=== PATIENT | male | born 1960 | race Caucasian/White ===

== ENCOUNTER 2021-05-29 06:03 | Day surgery (SDC) | payer OTHER, SELFPAY ==
[2021-05-22 13:14] VITALS: BMI 27.6
--- NOTE | 2021-05-25 16:41 | MHC.SHP ---
Pre-Procedural Eval Section A Date of Service: 05/25/21 The patient is an INPATIENT: No Changes since office visit: No Cold of Flu in the past 2 weeks, No New Medical Problems, No Changes in Medication and No Patient answered all questions The History & Physical has been completed within 30 days and I have reviewed it.: Yes Section B Chief Complaint: cataract left eye Allergies: Allergies Allergy/AdvReac Type Severity Reaction Status Date / Time bee pollen [bee stings] Allergy Anaphylaxis, Verified 05/17/21 16:21 swelling Plan Diagnosis/Plan: Unchanged I have reviewed the history and physical and performed a pertinent physical examination on my patient. No changes have occurred unless specified.
--- NOTE | 2021-05-26 08:51 | HO.ANESPROP2 ---
Documented by User: Yoly Mckeon NP 05/26/21 08:53 HPI - Anesthesia Eval Consult details Narrative: 60yo M for Left Cataract Extraction IOL Insertion PCP Cleared No previous cataract on record PMFSH Past Medical History Medical History Anxiety Asthma Chronic rhinitis COPD (chronic obstructive pulmonary disease) Depression Hyperlipidemia PUD (peptic ulcer disease) Smoker Vasovagal syncope Surgical History Surgical History History of esophagogastroduodenoscopy (EGD) History of repair of left rotator cuff History of surgery Hx of cervical spinal arthrodesis Hx of colonoscopy Social History Social History Are you a primary healthcare administration internship to a significant other at home: No Do you presently have visiting nurse or other home services: No Patient Tobacco Use Status: Current everyday Tobacco user Tobacco use type: Cigarette Cigarette Packs Per Day: 1 Cigarettes Per Day: 20.0 Years Smoked: 40 Smoked in Last 30 Days: Yes Patient Interested in Nicotine Replacement: No Use of substances other than those prescribed or required for medical reasons: No Have you been hit, kicked, punched, or otherwise hurt by someone within the past year? If so, by whom?: No Are you DNR?: No Advance Directives: No Advance Directives Information Provided: No Advance Directives on File: No Recently lost weight without trying: No Eating poorly because of decreased appetite: No Nutrition Risks: No Nutritional Risk Meds Allergies Allergy/AdvReac Type Severity Reaction Status Date / Time bee pollen [bee stings] Allergy Anaphylaxis, Verified 05/29/21 06:13 swelling Home Medications Medication Instructions Recorded Confirmed Last Taken Type albuterol sulfate 90 mcg/actuation 2 puff INHALATION Q4-6H PRN 05/17/21 05/17/21 Unknown History aerosol inhaler (ProAir HFA) fluticasone propionate 230 2 puff INHALATION BID 05/17/21 05/17/21 05/29/21 05:00 History mcg-salmeterol 21 mcg/actuation HFA inhaler (Advair HFA) omeprazole 40 mg capsule,delayed 1 cap PO DAILY 05/17/21 05/17/21 05/29/21 05:00 History release tiotropium bromide 2.5 2 puff INHALATION DAILY 05/17/21 05/17/21 Unknown History mcg/actuation mist for inhalation (Spiriva Respimat) Exam Exam Date and Time: May 26, 202151 Height,Weight and Vital Signs: Height 5 ft 9 in Weight 84.8 kg Assessment and Plan Assessment Anesthesia Assessment: Chart Reviewed Documented by User: Monica Myers MD 05/29/21 07:58 PMFSH Active Problems Active Problems: Smoker's cough Post nasal drip No problems lying flat Past Medical History Medical History Anxiety Asthma Chronic rhinitis COPD (chronic obstructive pulmonary disease) Depression Hyperlipidemia PUD (peptic ulcer disease) Smoker Vasovagal syncope Family History Family history of problems with anesthesia: No Surgical History Surgical History History of esophagogastroduodenoscopy (EGD) History of repair of left rotator cuff History of surgery Hx of cervical spinal arthrodesis Hx of colonoscopy History of Problems with Anesthesia: No Social History Social History Are you a primary healthcare administration internship to a significant other at home: No Do you presently have visiting nurse or other home services: No Patient Tobacco Use Status: Current everyday Tobacco user Tobacco use type: Cigarette Cigarette Packs Per Day: 1 Cigarettes Per Day: 20.0 Years Smoked: 40 Smoked in Last 30 Days: Yes Patient Interested in Nicotine Replacement: No Use of substances other than those prescribed or required for medical reasons: No Have you been hit, kicked, punched, or otherwise hurt by someone within the past year? If so, by whom?: No Are you DNR?: No Advance Directives: No Advance Directives Information Provided: No Advance Directives on File: No Recently lost weight without trying: No Eating poorly because of decreased appetite: No Nutrition Risks: No Nutritional Risk Meds Allergies Allergy/AdvReac Type Severity Reaction Status Date / Time bee pollen [bee stings] Allergy Anaphylaxis, Verified 05/29/21 06:13 swelling Home Medications Medication Instructions Recorded Confirmed Last Taken Type albuterol sulfate 90 mcg/actuation 2 puff INHALATION Q4-6H PRN 05/17/21 05/17/21 Unknown History aerosol inhaler (ProAir HFA) fluticasone propionate 230 2 puff INHALATION BID 05/17/21 05/17/21 05/29/21 05:00 History mcg-salmeterol 21 mcg/actuation HFA inhaler (Advair HFA) omeprazole 40 mg capsule,delayed 1 cap PO DAILY 05/17/21 05/17/21 05/29/21 05:00 History release tiotropium bromide 2.5 2 puff INHALATION DAILY 05/17/21 05/17/21 Unknown History mcg/actuation mist for inhalation (Spiriva Respimat) Exam Height,Weight and Vital Signs: Height 5 ft 9 in Weight 84.8 kg Vital Signs Temp Pulse Resp BP Pulse Ox 05/29/21 06:13 97.8 F 75 16 134/86 98 Airway Mallampati Class: III TM Dist: >3cm Neck ROM: Full Loose/Missing/Broken Teeth: Yes (Broken bottom Right ) Heart: RRR Lungs: CTAB Assessment and Plan Assessment Anesthesia Assessment: Anesthesia Plan Discussed Final Anesthetic Review Family History of Problems with Anesthesia: No History of Problems with Anesthesia: No NPO: Yes ASA Class: II Final Preanesthetic Review: No Changes in Pt Med Stat, Meds/Allgs Chart Reviewed, Consent Obtained/Reviewed and Anes Risks/Benef Reviewed Patient Risk: Low Procedure Risk: Low Assessment/Block/Sedation in SS: Assess/Block/Sedation-SS Anesthetic Plan Anesthetic Plan: MAC: Disposition: Standard PACU
[2021-05-29 06:13] VITALS: BP 134/86; PULSE 75; RESP 16; TEMP 36.6; O2SAT 98
[2021-05-29] MEDS: Tetracaine HCl/PF 0.5% Oph Sol 4 ML DROPS 1 DROP EYE-LEFT (06:25)
[2021-05-29] MEDS: Lactated Ringers 500 ML 50 ML IV (06:26)
[2021-05-29] MEDS: Tropicamide 1 % Ophth Sol 3 ML BTL 1 DROP EYE-LEFT ×3 (06:27→06:39)
[2021-05-29] MEDS: Phenylephrine HCL 2.5% Oph SoL 2 ML BOTTLE 1 DROP EYE-LEFT ×3 (06:31→06:43)
--- NOTE | 2021-05-29 08:36 | P.PCNO_ITS ---
Ophthalmology Procedure Procedure Date of Service: 05/29/21 Ophthalmology Viscoelastic: Healon Duet Dual Pack Pro Ophthalmology Lenses: TECNIS [id number] Procedure Notes: PREOPERATIVE DIAGNOSIS: Decreased visual acuity left eye secirene phong to cataract POSTOPERATIVE DIAGNOSIS: Same PROCEDURE: Left cataract extraction with intraocular lens insertion SURGEON: Kenton Hammond M.D. ANESTHESIA: Topical/MAC ESTIMATED BLOOD LOSS: None COMPLICATIONS: None After obtaining informed consent, the patient was brought to the operation room suite and placed in the supine position. After adequate sedation per anesthesia, topical drops of Tetracaine were given to the left eye. The eye was then prepped and draped in the usual sterile fashion. The operating room microscope was then positioned over the operative eye and a lid speculum placed. A paracentesis was created. Viscoelastic was then instilled into the anterior chamber. A three plane incision was then created temporally, utilizing a 2.85 mm keratome. Capsulotomy forceps were then utilized to create a circular tear capsulotomy. Hydrodissection and hydrodelineation were carried out until adequate mobilization of the nucleus occurred. Phacoemulsification was then utilized to remove the dense central nucleus followed by removal of the cortical material utilizing the automated aspiration irrigation unit. Viscoat elastic was instilled into the posterior capsular bag followed by placement of a posterior chamber intraocular lens without difficulty. The residual Viscoat elastic was then removed utilizing the automated IA machine. The wound was check and found to be watertight. The patient tolerated the procedure well and the lid speculum was removed. Intracameral injection of Vigamox 0.1 mL followed by a subtenon injection of Kenalog-40 0.2 mL were administered. The patient will be seen in the a.m.
[2021-05-29 08:41] VITALS: BP 136/92; PULSE 67; RESP 18; TEMP 36.5; O2SAT 95
== END 2021-05-29 08:46 | disposition home or self-care (01) ==
PROVIDERS: PCP Internal Medicine; Visit Provider Ophthalmology
PROC: (CPT 66985; principal; 2021-05-29 08:10)
DX: H25.12 Age-related nuclear cataract, left eye (principal); H54.7 Unspecified visual loss; J44.9 Chronic obstructive pulmonary disease, unspecified; K27.9 Peptic ulcer, site unspecified, unspecified as acute or chronic, without hemorrhage or perforation; E78.5 Hyperlipidemia, unspecified; Z79.51 Long term (current) use of inhaled steroids; Z79.899 Other long term (current) drug therapy; F17.210 Nicotine dependence, cigarettes, uncomplicated
CPT/HCPCS: 66984; J2250; J3010; J3300; V2632

== ENCOUNTER 2023-07-22 07:20 | Day surgery (SDC) | payer OTHER, SELFPAY ==
[2023-07-16 09:19] VITALS: BMI 28.1
--- NOTE | 2023-07-19 09:08 | P.CONAN_ITS ---
Documented by User: Yoly Mckeon NP 07/19/23 09:09 HPI - Anesthesia Eval Consult details Narrative: 63yo M for Right Cataract Extraction IOL Insertion PCP cleared Left eye 2020: Fent 50, Midaz 1 PMFSH Past Medical History Medical History CAD (coronary artery disease) Back pain GERD (gastroesophageal reflux disease) Sleep apnea Cough Myocardial infarction Vasovagal syncope PUD (peptic ulcer disease) Hyperlipidemia Anxiety Depression Smoker COPD (chronic obstructive pulmonary disease) Chronic rhinitis Asthma Family History Family history of problems with anesthesia: No Surgical History Surgical History Hx of heart artery stent Hx of cataract surgery History of repair of left rotator cuff Hx of cervical spinal arthrodesis Hx of colonoscopy History of surgery History of esophagogastroduodenoscopy (EGD) History of Problems with Anesthesia: No Social History Social History Are you a primary day care center director to a significant other at home: No Do you presently have visiting nurse or other home services: No Patient Tobacco Use Status: Current everyday Tobacco user Tobacco use type: Cigarette Cigarette Packs Per Day: 1 Cigarettes Per Day: 15 Years Smoked: 40 Use of substances other than those prescribed or required for medical reasons: No Have you been hit, kicked, punched, or otherwise hurt by someone within the past year? If so, by whom?: No Advance Directives: No Advance Directives Information Provided: No Advance Directives on File: No Recently lost weight without trying: No Eating poorly because of decreased appetite: No Nutrition Risks: No Nutritional Risk Poor oral hygiene: Yes (1 lower crown) Meds Allergies Allergy/AdvReac Type Severity Reaction Status Date / Time bee pollen [bee stings] Allergy Anaphylaxis, Verified 05/29/21 06:13 swelling shellfish derived Allergy Swelling Verified 07/16/23 09:34 Home Medications Medication Instructions Recorded Confirmed Last Taken Type albuterol sulfate 90 mcg/actuation 2 puff inhalation Q4-6H PRN 05/17/21 07/16/23 Unknown History aerosol inhaler (ProAir HFA) Wheezing fluticasone propionate 230 2 puff inhalation BID 05/17/21 07/16/23 05/29/21 05:00 History mcg-salmeterol 21 mcg/actuation HFA inhaler (Advair HFA) omeprazole 40 mg capsule,delayed 1 cap PO DAILY 05/17/21 07/16/23 05/29/21 05:00 History release aspirin 81 mg tablet,delayed 81 mg PO DAILY 07/16/23 07/16/23 Unknown History release atenolol 25 mg tablet 12.5 mg PO BID 07/16/23 07/16/23 Unknown History atorvastatin 20 mg tablet 80 mg PO BEDTIME 07/16/23 07/16/23 Unknown History bupropion HCl 150 mg tablet,12 hr 150 mg PO DAILY 07/16/23 07/16/23 Unknown History sustained-release Exam Height,Weight and Vital Signs: Height 5 ft 9 in Weight 86.183 kg Assessment and Plan Assessment Anesthesia Assessment: Chart Reviewed Final Anesthetic Review Family History of Problems with Anesthesia: No History of Problems with Anesthesia: No Documented by User: Herbert Reid MD 07/22/23 07:05 [facility] Past Medical History Medical History CAD (coronary artery disease) Back pain GERD (gastroesophageal reflux disease) Sleep apnea Cough Myocardial infarction Vasovagal syncope PUD (peptic ulcer disease) Hyperlipidemia Anxiety Depression Smoker COPD (chronic obstructive pulmonary disease) Chronic rhinitis Asthma Surgical History Surgical History Hx of heart artery stent Hx of cataract surgery History of repair of left rotator cuff Hx of cervical spinal arthrodesis Hx of colonoscopy History of surgery History of esophagogastroduodenoscopy (EGD) Social History Social History Are you a primary day care center director to a significant other at home: No Do you presently have visiting nurse or other home services: No Patient Tobacco Use Status: Current everyday Tobacco user Tobacco use type: Cigarette Cigarette Packs Per Day: 1 Cigarettes Per Day: 15 Years Smoked: 40 Use of substances other than those prescribed or required for medical reasons: No Have you been hit, kicked, punched, or otherwise hurt by someone within the past year? If so, by whom?: No Advance Directives: No Advance Directives Information Provided: No Advance Directives on File: No Recently lost weight without trying: No Eating poorly because of decreased appetite: No Nutrition Risks: No Nutritional Risk Poor oral hygiene: Yes (1 lower crown) Meds Allergies Allergy/AdvReac Type Severity Reaction Status Date / Time bee pollen [bee stings] Allergy Anaphylaxis, Verified 05/29/21 06:13 swelling shellfish derived Allergy Swelling Verified 07/16/23 09:34 Home Medications Medication Instructions Recorded Confirmed Last Taken Type albuterol sulfate 90 mcg/actuation 2 puff inhalation Q4-6H PRN 05/17/21 07/16/23 Unknown History aerosol inhaler (ProAir HFA) Wheezing fluticasone propionate 230 2 puff inhalation BID 05/17/21 07/16/23 05/29/21 05:00 History mcg-salmeterol 21 mcg/actuation HFA inhaler (Advair HFA) omeprazole 40 mg capsule,delayed 1 cap PO DAILY 05/17/21 07/16/23 05/29/21 05:00 History release aspirin 81 mg tablet,delayed 81 mg PO DAILY 07/16/23 07/16/23 Unknown History release atenolol 25 mg tablet 12.5 mg PO BID 07/16/23 07/16/23 Unknown History atorvastatin 20 mg tablet 80 mg PO BEDTIME 07/16/23 07/16/23 Unknown History bupropion HCl 150 mg tablet,12 hr 150 mg PO DAILY 07/16/23 07/16/23 Unknown History sustained-release Exam Airway Mallampati Class: II TM Dist: >3cm Neck ROM: Full Loose/Missing/Broken Teeth: Yes (Broken right bottom tooth) Heart: [id number] Lungs: cta b/l Assessment and Plan Assessment Anesthesia Assessment: Anesthesia Plan Discussed Final Anesthetic Review NPO: Yes ASA Class: III Final Preanesthetic Review: No Changes in Pt Med Stat, Meds/Allgs Chart Reviewed, Consent Obtained/Reviewed and Anes Risks/Benef Reviewed Patient Risk: Intermediate Procedure Risk: Low Assessment/Block/Sedation in SS: Assess/Block/Sedation-SS Anesthetic Plan Anesthetic Plan: MAC: Disposition: Standard PACU
[2023-07-22] MEDS: Tetracaine HCl/PF 0.5% Oph Sol 4 ML DROPS 1 DROP EYE-RIGHT (07:40)
[2023-07-22] MEDS: Cyclopentolate 1 % Ophth Sol 2 ML DRPBTL 1 DROP EYE-RIGHT ×3 (07:42→07:58)
[2023-07-22] MEDS: Tropicamide 1 % Ophth Sol 3 ML BTL 1 DROP EYE-RIGHT ×3 (07:44→08:00)
[2023-07-22] MEDS: Lactated Ringers 500 ML 50 ML IV (07:46)
[2023-07-22] MEDS: Ketorolac Tromethamine 0.5% Op 5 ML DROPS 1 DROP EYE-RIGHT ×3 (07:46→08:02)
[2023-07-22] MEDS: Phenylephrine HCL 2.5% Oph SoL 2 ML BOTTLE 1 DROP EYE-RIGHT ×3 (07:48→08:04)
[2023-07-22 07:49] VITALS: BP 149/89; PULSE 63; RESP 16; TEMP 36.4; O2SAT 96; BMI 28.1
--- NOTE | 2023-07-22 08:27 | MHC.SHP ---
Pre-Procedural Eval Section A - 24 Hr Update-Section A only Date of Service: 07/22/23 The patient is an INPATIENT: No Changes since office visit: No Cold of Flu in the past 2 weeks, No New Medical Problems, No Changes in Medication and No Patient answered all questions The patient has been examined within 24 hours of the surgical procedure. The History & Physical has been completed within 30 days and I have reviewed it.: Yes Section B - Complete if H&P > 30 days Chief Complaint: Age-related nuclear cataract, right eye Allergies: Allergies Allergy/AdvReac Type Severity Reaction Status Date / Time bee pollen [bee stings] Allergy Anaphylaxis, Verified 07/22/23 07:29 swelling shellfish derived Allergy Swelling Verified 07/22/23 07:29 Plan Diagnosis/Plan: Unchanged I have reviewed the history and physical and performed a pertinent physical examination on my patient. No changes have occurred unless specified. Time Spent With Patient Time: Total time managing care of this patient today ____ minutes.
--- NOTE | 2023-07-22 08:28 | HO.PNOPHT ---
Ophthalmology Procedure Procedure Date of Service: 07/22/23 Ophthalmology Viscoelastic: Vita Smileyt Dual Pack Pro Ophthalmology Lenses: TECMADY [id number] (21) Procedure Notes: PREOPERATIVE DIAGNOSIS: Decreased visual acuity right eye secondary to cataract POSTOPERATIVE DIAGNOSIS: Same PROCEDURE: Right cataract extraction with intraocular lens insertion SURGEON: Kenton Hammond M.D. ANESTHESIA: Topical/MAC ESTIMATED BLOOD LOSS: None COMPLICATIONS: None After obtaining informed consent, the patient was brought to the operating room suite and placed in the supine position. After adequate sedation per anesthesia, topical drops of Tetracaine were given to the right eye. The eye was then prepped and draped in the usual sterile fashion. The operating room microscope was then positioned over the operative eye and a lid speculum placed. A paracentesis was created. Viscoelastic was then instilled into the anterior chamber. A three plane incision was then created temporally, utilizing a 2.85 mm keratome. Capsulotomy forceps were then utilized to create a circular tear capsulotomy. Hydrodissection and hydrodelineation were carried out until adequate mobilization of the nucleus occurred. Phacoemulsification was then utilized to remove the dense central nucleus followed by removal of the cortical material utilizing the automated aspiration irrigation unit. Viscoelastic was instilled into the posterior capsular bag followed by placement of a posterior chamber intraocular lens without difficulty. The residual Viscoelastic was then removed utilizing the automated IA machine. The wound was checked and found to be watertight. The patient tolerated the procedure well and the lid speculum was removed. Intracameral injection of Vigamox 0.1 mL followed by a subtenon injection of Kenalog-40 0.2 mL were administered. The patient will be seen in the a.m.
[2023-07-22 08:52] VITALS: BP 121/79; PULSE 62; RESP 16; TEMP 36.6; O2SAT 95
== END 2023-07-22 08:57 | disposition home or self-care (01) ==
PROVIDERS: PCP Nurse Practitioner Family; Visit Provider Ophthalmology
PROC: (CPT 66985; principal; 2023-07-22 09:10)
DX: H25.11 Age-related nuclear cataract, right eye (principal); H54.7 Unspecified visual loss; E78.5 Hyperlipidemia, unspecified; I25.2 Old myocardial infarction; Z79.02 Long term (current) use of antithrombotics/antiplatelets; Z79.82 Long term (current) use of aspirin; Z79.899 Other long term (current) drug therapy
CPT/HCPCS: 66984; J2250; J3010; J3301; V2632

== ENCOUNTER 2025-03-09 09:22 | Outpatient (AMB) | payer OTHER, SELFPAY ==
--- NOTE | 2025-03-09 05:30 | A.OFFVIS_ITS ---
Vital Signs 03/09/25 09:32 Height 5 ft 9 in Weight 178 lb BMI 26.3 BP 132/68 Blood Pressure Location Lt brachial Position Sitting Pulse 58 Pulse Source Pulse Oximeter Pulse Oximetry (%) 98 Oxygen Delivery Method Room Air Intake Visit Reasons: COPD Buffing Machine Tender Required: No Commercial Floor Covering Installer: Commercial Floor Covering Installer offered & declined Accompanied by: Self / Same As Patient Allergies bee pollen (bee stings) Allergy (Verified 03/09/25 09:37) Anaphylaxis, swelling shellfish derived Allergy (Verified 03/09/25 09:37) Swelling Medication List - Last Reconciled 03/09/25 by Nitza Cody LPN albuterol sulfate 90 mcg/actuation (ProAir HFA) 2 puffs inhalation Q4-6H PRN aspirin 81 mg PO DAILY atenolol 12.5 mg PO BID atorvastatin 80 mg PO BEDTIME bupropion HCl SR 150 mg PO DAILY omeprazole 1 cap PO DAILY HPI HPI COPD: Details: Parul is a pleasant 64 year old male, current 30 pack year smoker, with underlying COPD, Asthma, ASHOK, GERD, CAD s/p [place] [facility] cardiology, Anxiety and Depression. He was referred by PCP for pulmonary evaluation. He was diagnosed with COPD years ago and was previously on Advair for approximately 30 years, but discontinued it 8 to 10 months ago due to adverse effects such as coughing fits triggered by the medication. Since discontinuation, he reports increased chest tightness and dyspnea, which prompted the current visit. The patient also has a history of asthma, confirmed through testing that induced severe coughing fits during the PFT. He describes his cough as starting with a tickle in the throat and has been persistent for a long time with associated dyspnea and chest tightness. He experienced cough syncope in the past, which was a significant concern as it occurred while driving, but the intensity of these episodes has decreased over time. The patient has a history of sleep apnea diagnosed post-myocardial infarction, with a sleep study showing mild ASHOK AHI 14 with no significant nocturnal hypoxemia in 2021. He currently uses a CPAP machine but reports inconsistent usage over the past two months, leading to symptoms of fatigue and nonrestorative sleep. Since his last sleep study he has lost approximately 40 lbs. He has a history of gastroesophageal reflux disease (GERD), managed with omeprazole, and reports a history of a duodenal ulcer which has resolved. He also reports postnasal drip and seasonal allergies, which have developed over the last decade, but he is not currently on any allergy medications. He denies any recent allergy testing. The patient has a significant smoking history, currently smoking about a pack a day, and has attempted smoking cessation with various methods including patches and Chantix, but faced insurance coverage issues. He has a family history of lung cancer, mother, smoker and has undergone lung screening through [facility], recent LDCT 02/15 revealed new LLL 4.5 mm nodule with recommendation for a six- month follow-up scan however patient states he was informed of an annual follow up. [facility] Medical History (Updated 03/09/25 @ 12:28 by Rachana Bagley NP) CAD (coronary artery disease) Back pain GERD (gastroesophageal reflux disease) Sleep apnea Cough Myocardial infarction Vasovagal syncope PUD (peptic ulcer disease) Hyperlipidemia Anxiety Depression Smoker COPD (chronic obstructive pulmonary disease) Chronic rhinitis Asthma Surgical History Hx of heart artery stent Hx of cataract surgery History of repair of left rotator cuff Hx of cervical spinal arthrodesis Hx of colonoscopy History of surgery History of esophagogastroduodenoscopy (EGD) Social History (Updated 03/09/25 @ 09:37 by Nitza Cody LPN) Are you a primary child care cook to a significant other at home: No Do you presently have visiting nurse or other home services: No Patient Tobacco Use Status: Current everyday Tobacco user Tobacco use type: Cigarette Cigarette Packs Per Day: 1 Cigarettes Per Day: 20 Years Smoked: 40 Review of Systems Const Denies chills, Denies excessive sweating, Denies fever(s), Denies headache(s) and Denies night sweats Eyes Denies dry eyes, Denies irritation and Denies itchy eyes ENT Reports Normal hearing present, Denies headache(s) and Denies sore throat Card Denies chest pain, Denies chest pain at rest, Denies chest pain with activity, Denies claudication, Denies leg edema, Denies orthopnea and Denies paroxysmal nocturnal dyspnea Resp Denies chest congestion, Denies excessive phlegm production, Denies pain on inspiration, Denies pain with cough, Denies stridor and Denies wheezing Musc Denies myalgias Neuro Reports Normal hearing present and Denies headache(s) Endo Denies excessive sweating Wayne/Lymph Denies lymphadenopathy Aller/Immun Denies itchy eyes, Denies seasonal rhinorrhea and Denies wheezing Physical Exam Vital Signs: Last Vital Signs Pulse 58 03/09/25 09:32 BP 132/68 03/09/25 09:32 Pulse Ox 98 03/09/25 09:32 Oxygen Delivery Method Room Air 03/09/25 09:32 BMI result Body Mass Index 26.3 Const General: cooperative, healthy appearing, comfortable, no acute distress, well developed and alert Orientation/consciousness: patient oriented x3 Limitations: no limitations HEENT Head: Yes normal to inspection, Yes normocephalic and Yes atraumatic Ears: hearing grossly normal bilaterally and external ears normal Eyes General: appearance normal, both eyes and all related structures Eyelids: Yes eyelids normal Sclerae: sclerae normal EOM: EOMs intact bilaterally Neck Neck: Yes normal visual inspection and Yes no lymphadenopathy Lymphatic: no lymphadenopathy noted Chest Chest palpation & inspection: normal inspection of the chest Resp Effort & Inspection: normal respiratory effort, able to speak in complete sentences, no audible wheezes, no cough, no stridor, not tachypneic, no tripod positioning and no use of accessory muscles Auscultation: clear to auscultation bilaterally Cardio Jugular venous distension: no JVD Rate: regular rate Rhythm: regular rhythm Skin Other: warm, dry General skin exam: no rashes or lesions noted Neuro General: patient oriented x3 Cranial nerves: Yes Normal hearing present Cognition (Neuro): normal cognition Gait exam (Neuro): Normal gait present Extrem General: Yes normal to inspection, Yes capillary refill normal, Yes no clubbing, cyanosis or edema and Yes no pedal edema Psych Appearance: grossly normal and well kempt Speech and movement: Normal speech and movement present and Clear speech present Affect: normal affect Attitude: cooperative Thought process: Normal thought process present Thought content: Normal thought content present Insight: Good insight present (Psych) Judgement: Good judgement present (Psych) Results Reviewed Results Reviewed: RESULT: CT Chest LDCT Lung Program CT Chest LDCT Lung Program Reason: Other:; LDCT LUNG CANCER SCREENING PROGRAM. CURRENT, 47 PACK YEAR HX; Clinical Question(s): Other:; Special Instructions: BOOK AT [facility] BOOK AFTER [address] IN THE 12 LAST MONTHS. NO LUNG CA, SIGNS OR SYMPTOMS. Visit type: Annual Screening TECHNIQUE: Low-dose helical CT of the chest without IV contrast (Adult Lung Cancer Screening) protocol was performed. Coronal reformats were obtained. Weight-based protocol using automatic tube modulation was used to optimize exposure parameters. CTDIvol Body: 2.91 mGy, DLP Body: 113 mGy*cm. COMPARISON: 01/27/2024 FINDINGS: LUNG NODULES (measured on thin axial series 4): New 4.7 x 3.5 mm solid left lower lobe nodule (series 4 image 200). A few additional scattered nodules measuring up to 5 mm are unchanged. OTHER FINDINGS: Cargo Inspector view findings, lines and tubes: None. Trachea and airways: Patent without evidence of tracheal or endobronchial lesion. Lungs and pleura: Mild linear scarring or atelectasis in the lingula. No effusion or pneumothorax. Mediastinum and kelly: No mass or hematoma. No mediastinal or hilar lymphadenopathy. No esophageal abnormality. Heart: Heart is normal in size. No pericardial effusion. Moderate coronary artery calcification. Aorta: Mild vascular calcification but no aneurysm. Pulmonary arteries: Normal caliber. Chest wall soft tissues: No acute abnormality. Diaphragm: Intact. Upper abdomen: Simple cyst in the left hepatic lobe. Bones: No acute abnormality. IMPRESSION: 1. New 4.1 mm average diameter solid left lower lobe nodule. LungRad Category: 3 Probably benign. Probably benign finding(s) - short term follow up suggested; includes nodules with a low likelihood of becoming a clinically active cancer. 6 month LDCT. 2. No significant additional findings requiring further evaluation. Lung-RAD Category Modifier: None. Categorization based on Lung-RADS 2022 criteria. [email or web address] WSN: [id number] Ordering Physician: Beth Aguilar Reason For Exam LDCT LUNG CANCER SCREENING PROGRAM. CURRENT, 47 PACK YEAR HX;Other: Signature Line Dictated By: Gabriel Espana MD Dictated Date/Time: 01/29/25 3:13 pm Reviewed By: Gabriel Espana MD Signed By: Gabriel Espana MD Signed Date/Time: 01/29/25 3:13 pm Transcribed By: JERED Assessment & Plan Assessment & Plan (1) Asthma: Code(s): J45.909 - Unspecified asthma, uncomplicated Category: Medical (2) COPD (chronic obstructive pulmonary disease): Code(s): J44.9 - Chronic obstructive pulmonary disease, unspecified Category: Medical (3) Nicotine dependence, cigarettes, uncomplicated: Code(s): F17.210 - Nicotine dependence, cigarettes, uncomplicated Category: Medical (4) Environmental allergies: Code(s): Z91.09 - Other allergy status, other than to drugs and biological substances Category: Medical (5) Non-restorative sleep: Code(s): G47.8 - Other sleep disorders Category: Medical (6) Daytime somnolence: Code(s): R40.0 - Somnolence Category: Medical Plan The patient will be started on Symbicort, 2 inhalation BID , with instructions to rinse the mouth after use to prevent oral thrush. Advised to avoid dry powder inhalers due to intolerance and to monitor for any exacerbations. A five-day course of prednisone is prescribed to reduce airway inflammation and improve inhaler tolerance, as post exhalation cough during respiratory examination. At this time patient would like to avoid PFT due to significant coughing during last examination, will attempt to obtain prior. Will send for RAST to assess for an allergic component. Discussed a repeat sleep study due to significant weight loss, which may have altered the patient's apnea severity. The patient is advised to resume regular CPAP use to alleviate symptoms of fatigue and morning headaches. DME is [employer]. The patient is encouraged to consider smoking cessation options, including hypnosis, due to previous unsuccessful attempts with pharmacotherapy and insurance coverage issues. In regards to LDCT will reach out to [facility] in attempts to obtain CT images from 2024 and 2023, to assess need for 6 month follow up vs 1 year. All questions were answered and patient is in agreement of plan, Will follow up in 6-8 weeks or sooner if needed. Orders: Orders Complete Blood Count Auto Diff Today Z91.09 - Other allergy status, other than to drugs and biological substances Immunoglobulin E Today Z91.09 - Other allergy status, other than to drugs and biological substances Resp Allergy Profile Region I Today Z91.09 - Other allergy status, other than to drugs and biological substances RT home sleep study Today G47.8 - Other sleep disorders, R40.0 - Somnolence Medications: New prednisone 40 mg (2 x 20 mg) PO DAILY 10 tabs 0RF budesonide-formoterol 80-4.5 mcg/actuation (Symbicort) 2 puffs inhalation Q12H 10.2 grams 2RF Coding Level of Care Code New Pt Level 4 (12843) Diagnoses Asthma J45.909 COPD (chronic obstructive pulmonary disease) J44.9 Nicotine dependence, cigarettes, uncomplicated F17.210 Environmental allergies Z91.09 Non-restorative sleep G47.8 Daytime somnolence R40.0
[2025-03-09 09:32] VITALS: BP 132/68; PULSE 58; O2SAT 98; BMI 26.3
--- OUTSIDE RECORDS SUMMARY | 2025-03-09 11:49 | XMS_ITS | Encounter Summary ---
Author Organization [facility] Address [address] [place] [address] Care Team Providers Care Environmental Law Professor Name Role Phone Beth Aguilar Primary Care Provider Encounter Details Date Type Department Care Team (Late st Contact Info) Description 07/02/[address] [facility] [address] [facility] [place] [id number] Jed Cortes MD [address] [facility] [address] [place] [address] Personal history of other diseases of the digestive system; Gastro-esophageal reflux disease without esophagitis Social History Tobacco Use Types Packs/Day Years Used Date Smoking Tobacco: Never Assessed Sex and Gender Information Value Date Recorded Sex Assigned at Not on file Legal Sex Male 5:04 PM EST Gender Identity Not on file Sexual Orientation Not on file documented as of this encounter Plan of Treatment Not on file documented as of this encounter Procedures Procedure Name Priority Date/Time Associated Diagnosis Comments TISSUE EXAM Routine 07/01/2024 Personal history of other diseases of the digestive system Gastro-esophageal reflux disease without esophagitis documented in this encounter Results * Tissue Exam (07/01/2024) Final Diagnosis Distal esophagus, biopsy: Esophageal squamous mucosa with mild reactive changes; no intraepithelial eosinophils identified. Gastric cardiac type mucosa with patchy chronic inflammation. No intestinal metaplasia no dysplasia identified in this biopsy specimen. 07/03/2024 11:09 AM EST [facility] Clinical Information Surveillance for malignancy due to personal history of Henry's esophagus, gastro-esophageal reflux disease 07/03/2024 11:09 AM EST [facility] Gross Description A. Esophagus, distal biopsy: Labeled labeled distal esophagus biopsy . Received in formalin are three irregular bolton-white mucosal tissue fragments, each measuring approximately 0.1 cm in greatest dimension, which are wrapped in paper and submitted in toto in one cassette, three pieces, multiple levels on one slide. TAMEKA 07/03/2024 11:09 AM [facility] Disclaimer Unless otherwise specified, all tissue is 10% NB formalin fixed and paraffin embedded. 07/03/2024 11:09 AM [facility] Tissue Esophageal structure / Unknown 07/01/2024 07/02/2024 9:17 AM EST us Jed Cortes MD LAB PATHOLOGY ORDERABLES Fi nal Result [facility] [address] [place] [address], documented in this encounter Visit Diagnoses Diagnosis Personal history of other diseases of the digestive system Gastro-esophageal reflux disease without esophagitis documented in this encounter Care Teams Environmental Law Professor Relationship Specialty Start Date End Date Beth Aguilar FNP [address] [place] [phone] PCP - General Family Medicine 06/22/24 documented as of this encounter
--- OUTSIDE RECORDS SUMMARY | 2025-03-09 11:49 | XMS_ITS | Clinical Summary ---
Author Organization [facility] [address] [facility] Address [address] [place] [address] Phone Care Team Providers Care University Controller Name Role Phone Beth Aguilar [facility] Primary Care Provider Allergies Active Allergy Reactions Criticality Noted Date Comments Other Anaphylaxis,Swelling High 07/22/2024 Bee stings Shellfish Derived 07/22/2024 Other Reaction(s): itchy,swelling Medications famotidine (PEPCID) 40 mg tablet Take 1 tablet (40 mg total) by mouth 2 (two) times a day. 180 each 3 06/26/2024 Active Social History Tobacco Use Types Packs/Day Years Used Date Smoking Tobacco: Never Assessed Sex and Gender Information Value Date Recorded Sex Assigned at Not on file Legal Sex Male 5:04 PM EST Gender Identity Not on file Sexual Orientation Not on file Last Filed Vital Signs Vital Sign Reading Time Taken Comments Blood Pressure - - Pulse - - Temperature - - Respiratory Rate - - Oxygen Saturation - - Inhaled Oxygen Concentration - - Weight 80.7 kg (178 lb) 07/22/2024 10:58 AM EST Height 175.3 cm (5' 9 ) 07/22/2024 10:58 AM EST Body Mass Index 26.29 07/22/2024 10:58 AM EST Plan of Treatment Health Maintenance Due Date Last Done Comments Zoster Vaccines (1 of 2) 2010 Pneumococcal Vaccine: 50+ Years (2 of 2 - PCV) 06/10/2017 06/10/2016 RSV Immunization Adult Patients (1 - Risk 60-74 years 1-dose series) 2020 Cholesterol Screening (Lipid Panel) 05/23/2022 HIV Screening 05/23/2022 Hepatitis C Screening 05/23/2022 Social Influencers of Health Screening 05/23/2022 Depression Screening 2024 COVID-19 Vaccine ( season) 2025 04/04/2021, 09/29/2020, 09/08/2020 Influenza Vaccine (#1) 2025 3, 05/16/2021, 06/07/2020, Additional history exists Hypertension/CHF/CAD Annual BMP Blood Test 06/26/2025 06/26/2024 Colorectal Cancer Screening: Colonoscopy 06/27/2027 06/27/2017 DTaP,Tdap,and Td Vaccines (3 - Td or Tdap) 12/27/2029 12/28/2019, 2003 MMR Vaccines Aged Out 06/30/1999 No longer eligi ble based on patient's age to complete this topic HIB Vaccines Aged Out No longer eligi ble based on patient's age to complete this topic HPV Vaccines Aged Out No longer eligi ble based on patient's age to complete this topic Hepatitis A Vaccines Aged Out No long er eligible based on patient's age to complete this topic Hepatitis B Vaccines Aged Out No long er eligible based on patient's age to complete this topic IPV Vaccines Aged Out No longer eligi ble based on patient's age to complete this topic Meningococcal ACWY Vaccine Aged Out N o longer eligible based on patient's age to complete this topic Meningococcal B Vaccine Aged Out No l onger eligible based on patient's age to complete this topic RSV Immunization Patients Under 20 months Aged Out No longer eligible based on patient's age to complete this topic Varicella Vaccines Aged Out No longer eligible based on patient's age to complete this topic Procedures Procedure Name Priority Date/Time Associated Diagnosis Comments COMPREHENSIVE METABOLIC PANEL Routine 06/26/2024 9:09 AM EST Gastroesophageal reflux disease, unspecified whether esophagitis present Henry's esophagus without dysplasia Periumbilical abdominal pain COLONOSCOPY Routine 06/27/2017 11:57 AM EST from Last 3 Months or Most Recently Relevant to Health Maintenance Results * (ABNORMAL) Comprehensive metabolic panel (06/26/2024 9:09 AM EST) Sodium 138 133 - 145 mmol/L LAB CHEMISTRY METHOD 06/26/2024 11:35 AM [facility] Potassium 4.2 3.5 - 5.5 mmol/L LAB CHEMISTRY METHOD 06/26/2024 11:35 AM [facility] Chloride 104 96 - 110 mmol/L LAB CHEMISTRY METHOD 06/26/2024 11:35 AM [facility] CO2 30 21 - 32 mmol/L LAB CHEMISTRY METHOD 06/26/2024 11:35 AM [facility] Anion Gap 4 3 - 11 LAB CHEMISTRY METHOD 06/26/2024 11:35 AM [facility] Glucose 108(H) 70 - 100 mg/dL LAB CHEMISTRY METHOD 06/26/2024 11:35 AM [facility] BUN 16 5 - 25 mg/dL LAB CHEMISTRY METHOD 06/26/2024 11:35 AM [facility] Creatinine 0.92 0.70 - 1.30 mg/dL LAB CHEMISTRY METHOD 06/26/2024 11:35 AM [facility] eGFR 93 >=60 mL/min/1. 73m2 LAB CHEMISTRY METHOD 06/26/2024 11:35 AM [facility] Comment:Calculation based on the Chronic Kidney Disease Epidemiology Collaboration (CKD-EPI) equation refit without adjustment for race. BUN/Creatinine Ratio 17.4 LAB CHEMISTRY METHOD 06/26/2024 11:35 AM [facility] Calcium 9.0 8.5 - 10.5 mg/dL LAB CHEMISTRY METHOD 06/26/2024 11:35 AM [facility] AST (SGOT) 16 10 - 42 unit/L LAB CHEMISTRY METHOD 06/26/2024 11:35 AM [facility] ALT (SGPT) 23 10 - 60 unit/L LAB CHEMISTRY METHOD 06/26/2024 11:35 AM [facility] Alkaline Phosphatase 92 42 - 121 unit/L LAB CHEMISTRY METHOD 06/26/2024 11:35 AM EST [facility] Total Protein 6.6 6.0 - 8.0 g/dL LAB CHEMISTRY METHOD 06/26/2024 11:35 AM EST [facility] Albumin 3.5 3.2 - 5.0 g/dL LAB CHEMISTRY METHOD 06/26/2024 11:35 AM EST [facility] Total Bilirubin 0.6 0.0 - 1.4 mg/dL LAB CHEMISTRY METHOD 06/26/2024 11:35 AM EST [facility] Blood Venous blood specimen / Unknown Venipuncture / Unknown 06/26/2024 9:09 AM EST 06/26/2024 10:37 AM EST Kasie Herrera [employer] LAB BLOOD ORDERABLES Final Re sult [facility] [address] [place] [address], * COLONOSCOPY (06/27/2017 11:57 AM EST) Anatomical Region Laterality Modality Endoscopy Historical Provider GI~PROCEDURE ORDERABLES F inal Result from Last 3 Months or Most Recently Relevant to Health Maintenance Insurance [facility] [address] [place] [phone] Care Teams University Controller Relationship Specialty Start Date End Date Beth Aguilar FNP [address] [place] [phone] PCP - General Family Medicine 06/22/24
== END 2025-03-09 10:35 | disposition home or self-care (01) ==
LOC: HO.HPSW 09:22
PROVIDERS: PCP Nurse Practitioner Family; Visit Provider Nurse Practitioner Family
DX: J45.909 Unspecified asthma, uncomplicated (principal); J44.9 Chronic obstructive pulmonary disease, unspecified; F17.210 Nicotine dependence, cigarettes, uncomplicated; Z91.09 Other allergy status, other than to drugs and biological substances; G47.8 Other sleep disorders; R40.0 Somnolence
CPT/HCPCS: 99204

== ENCOUNTER 2025-05-12 13:07 | Outpatient (AMB) | payer OTHER, SELFPAY ==
[2025-05-12 13:09] VITALS: BP 100/58; PULSE 59; O2SAT 97; BMI 27.5
--- NOTE | 2025-05-12 13:09 | MHC.OFFVIS ---
Vital Signs 05/12/25 13:09 Height 5 ft 9 in Weight 186 lb BMI 27.5 BP 100/58 L Blood Pressure Location Rt brachial Position Sitting Pulse 59 Pulse Source Pulse Oximeter Pulse Oximetry (%) 97 Oxygen Delivery Method Room Air Intake Visit Reasons: COPD Allergies bee pollen (bee stings) Allergy (Verified 05/12/25 13:12) Anaphylaxis, swelling shellfish derived Allergy (Verified 05/12/25 13:12) Swelling HPI HPI COPD: Details: Parul is a pleasant 64 year old male, current 30 pack year smoker, with underlying COPD, Asthma, ASHOK, GERD, CAD s/p [place] [facility] cardiology, Anxiety and Depression. Recently diagnosed with prostate cancer and will be following with [facility] oncology in the next few weeks. At the last visit he was given prednisone in addition to Symbicort 80mcg reporting decrease in frequency of cough although continues to persist in addition to post nasal drip. Of note, patient a part of the lung screening program through [facility] and had followed up with [facility] Pulmonary regarding the new LLL pulmonary nodule, measuring 4.5 mm, from LDCT 01/2025. During this visit patient was prescribed Singulair, Azelastine in addition to Trelegy. He has started Singulair as well Azelastine, unable to obtain Trelegy. Patient has upcoming HST scheduled next month to reassess ASHOK diagnosis as he has lost approximately 40 lbs since the last visit. He follows with [facility] lung screening program, recent LDCT 02/15 revealed new LLL 4.5 mm nodule with recommendation for a six-month follow-up scan however patient states he was informed of an annual follow up, will follow recommendations and place order for 6 month follow up, to be performed through [facility] per patient request. Unfortunately patient continues to smoke 1 ppd and contemplating quitting especially given recent prostate cancer diagnosis. [facility] Medical History (Updated 05/16/25 @ 10:39 by Rachana Bagley NP) CAD (coronary artery disease) Back pain GERD (gastroesophageal reflux disease) Sleep apnea Cough Myocardial infarction Vasovagal syncope PUD (peptic ulcer disease) Hyperlipidemia Anxiety Depression Smoker COPD (chronic obstructive pulmonary disease) Chronic rhinitis Asthma Surgical History Hx of heart artery stent Hx of cataract surgery History of repair of left rotator cuff Hx of cervical spinal arthrodesis Hx of colonoscopy History of surgery History of esophagogastroduodenoscopy (EGD) Social History Are you a primary healthcare customer service to a significant other at home: No Do you presently have visiting nurse or other home services: No Patient Tobacco Use Status: Current everyday Tobacco user Tobacco use type: Cigarette Cigarette Packs Per Day: 1 Cigarettes Per Day: 20 Years Smoked: 40 Review of Systems Const Denies chills, Denies excessive sweating, Denies fever(s), Denies headache(s) and Denies night sweats Eyes Denies dry eyes and Denies irritation ENT Reports Normal hearing present, Denies headache(s) and Denies sore throat Card Denies chest pain, Denies chest pain at rest, Denies chest pain with activity, Denies claudication, Denies leg edema, Denies orthopnea and Denies paroxysmal nocturnal dyspnea Resp Denies chest congestion, Denies excessive phlegm production, Denies pain on inspiration, Denies pain with cough, Denies stridor and Denies wheezing Musc Denies myalgias Neuro Reports Normal hearing present and Denies headache(s) Endo Denies excessive sweating Wayne/Lymph Denies lymphadenopathy Aller/Immun Denies wheezing Physical Exam Vital Signs: Last Vital Signs Pulse 59 05/12/25 13:09 BP 100/58 L 05/12/25 13:09 Pulse Ox 97 05/12/25 13:09 Oxygen Delivery Method Room Air 05/12/25 13:09 BMI result Body Mass Index 27.5 Const General: cooperative, healthy appearing, comfortable, no acute distress, well developed and alert Orientation/consciousness: patient oriented x3 Limitations: no limitations HEENT Head: Yes normal to inspection, Yes normocephalic and Yes atraumatic Ears: hearing grossly normal bilaterally and external ears normal Eyes General: appearance normal, both eyes and all related structures Eyelids: Yes eyelids normal Sclerae: sclerae normal EOM: EOMs intact bilaterally Neck Neck: Yes normal visual inspection and Yes no lymphadenopathy Lymphatic: no lymphadenopathy noted Chest Chest palpation & inspection: normal inspection of the chest Resp Effort & Inspection: normal respiratory effort, able to speak in complete sentences, no audible wheezes, no cough, no stridor, not tachypneic, no tripod positioning and no use of accessory muscles Auscultation: clear to auscultation bilaterally Cardio Jugular venous distension: no JVD Rate: regular rate Rhythm: regular rhythm Skin Other: warm, dry General skin exam: no rashes or lesions noted Neuro General: patient oriented x3 Cranial nerves: Yes Normal hearing present Cognition (Neuro): normal cognition Gait exam (Neuro): Normal gait present Extrem General: Yes normal to inspection, Yes capillary refill normal, Yes no clubbing, cyanosis or edema and Yes no pedal edema Psych Appearance: grossly normal and well kempt Speech and movement: Normal speech and movement present and Clear speech present Affect: normal affect Attitude: cooperative Thought process: Normal thought process present Thought content: Normal thought content present Insight: Good insight present (Psych) Judgement: Good judgement present (Psych) Assessment & Plan Assessment & Plan (1) Asthma: Code(s): J45.909 - Unspecified asthma, uncomplicated Category: Medical (2) COPD (chronic obstructive pulmonary disease): Code(s): J44.9 - Chronic obstructive pulmonary disease, unspecified Category: Medical (3) Nicotine dependence, cigarettes, uncomplicated: Code(s): F17.210 - Nicotine dependence, cigarettes, uncomplicated Category: Medical (4) Environmental allergies: Code(s): Z91.09 - Other allergy status, other than to drugs and biological substances Category: Medical (5) Non-restorative sleep: Code(s): G47.8 - Other sleep disorders Category: Medical (6) Daytime somnolence: Code(s): R40.0 - Somnolence Category: Medical Plan Patient reports suboptimal control with Symbicort 80mcg, will increase to 160 mcg. May need to consider LAMA component. Encouraged continued use of Azelastine as well as Singulair. Patient aware to call if symptoms do not improve or change. The patient is encouraged to consider smoking cessation options, including hypnosis, due to previous unsuccessful attempts with pharmacotherapy and insurance coverage issues, he is considering this. In regards to LDCT will send CT order to [facility] to follow up on new pulmonary nodule on LDCT from 01/2025. Patient with upcoming HST to reestablish ASHOK diagnosis given significant weight loss since initial HST. Per patient request, will hold off of repeating PFT. All questions were answered and patient is in agreement of plan, Will follow up 2-3 months or sooner if needed. Orders: Orders CT chest wo IV con 3 Months R91.1 - Solitary pulmonary nodule Medications: New budesonide-formoterol 160-4.5 mcg/actuation (Symbicort) 2 puffs inhalation Q12H 10.2 grams 3RF Discontinued budesonide-formoterol 80-4.5 mcg/actuation (Symbicort) Discontinued Reason: Patient Completed Course 2 puffs inhalation Q12H 10.2 grams 2RF Coding Level of Care Code Est Pt Level 4 (06611) Diagnoses Asthma J45.909 COPD (chronic obstructive pulmonary disease) J44.9 Nicotine dependence, cigarettes, uncomplicated F17.210 Environmental allergies Z91.09 Non-restorative sleep G47.8 Daytime somnolence R40.0
--- OUTSIDE RECORDS SUMMARY | 2025-05-13 01:02 | XMS_ITS | Continuity of Care Document ---
Author Organization [facility], [place] [place] [address] Floor Address [facility] [address] Care Team Providers Care Orthotic Finish Grinding Technician Name Role Phone ANAIS BUCHANAN Primary Care Provider Assessment No assessment recorded. Plan of Treatment Reminders Order Date Submit Date Provider Last Modified By Organization Details Last Modified Time Details Appointments None record ed. Lab None record ed. Referral None record ed. Procedures None record ed. Surgeries None record ed. Imaging None record ed. Medication Orders None record ed. Patient TargetsNo targets recorded. Patient InstructionsNo instructions recorded. Reason for Referral None Reported. Problems Name Problem SNOMED Code Status Onset Date Resolution Date Notes Provider Name and Address Organization Details Recorded Time Pain of left wrist [id number] Active 2024 RADHA qiu [facility] 10:21:16 Problem Notes None recorded. Procedures Surgical History Date Name Laterality Status Provider Name and Address Organization Details Recorded Time 5 Small Joint Kenalog Injection, L/R completed Jessica Patel PA-C [address], [place], [address], [facility] 03/19/2025 14:27:44 5 Small Joint Kenalog Injection, L/R completed Jessica Patel PA-C [address], [place], [address], [facility] 11/11/2024 14:19:03 Imaging Results None recorded. Procedure Notes None recorded. Medical Equipment None Reported. Allergies Allergen ID Allergen Name Allergen Category Reaction Reaction Severity Criticality Documentation Date Start Date Code Code System Note Provider Name and Address Organization Details Recorded Time 842015 honey bee venom medicatio n Not available Not available Not available 08/12/2024 67553 7 RxNorm RADHA qiu [place] - [facility] 5 10:15:07 14448 Shellfish (substanc e) food,medi cation Not available Not available Not available 08/26/20232005 13202 9006 SNOMED Not Available [facility] 4 13:10:59 Medications Name Sig Start Date Stop Date Status Note LastModified by Organization Details LastModified Time atorvastati n 80 mg tablet TAKE 1 TABLET BY MOUTH DAILY AT BEDTIME active Not Available Not Available No t Available acetaminoph en 325 mg tablet PLEASE SEE ATTACHED FOR DETAILED DIRECTION S 08/12 completed Not Available Not Available Not Available doxycycline hyclate 100 mg capsule TAKE 1 CAPSULE BY MOUTH TWO TIMES A DAY. 08/12 completed Not Available Not Available Not Available nicotine 14 mg/24 hr daily transdermal patch PLEASE SEE ATTACHED FOR DETAILED DIRECTION S 08/12 completed Not Available Not Available Not Available nabumetone 750 mg tablet TAKE 2 TABLETS BY MOUTH EVERY DAY 08/12 completed Not Available Not Available Not Available meloxicam 15 mg tablet TAKE 1 TABLET BY MOUTH EVERY DAY WITH FOOD NEEDED FOR JOINT PAIN active Not Available Not Available No t Available famotidine 40 mg tablet TAKE 1 TABLET BY MOUTH TWICE A DAY active Not Available Not Available No t Available prednisone 20 mg tablet TAKE 2 TABLETS BY MOUTH EVERY DAY active Not Available Not Available No t Available atenolol 25 mg tablet TAKE ONE-HALF TABLET BY MOUTH 2 TIMES A DAY active Not Available Not Available No t Available penicillin V potassium 500 mg tablet TAKE 1 TABLET BY MOUTH 3 TIMES A DAY FOR 10 DAYS active Not Available Not Available No t Available ciprofloxac in 500 mg tablet TAKE 1 TABLET BY MOUTH 1 HOUR BEFORE PROCEDURE AND 1 TABLET 10 HOURS AFTER active Not Available Not Available No t Available omeprazole 40 mg capsule,del ayed release TAKE 1 CAPSULE BY MOUTH EVERY DAY 08/12 completed Not Available Not Available Not Available calcium 600 mg (as calcium carbonate 1,500 mg) tablet TAKE 1 TABLET BY MOUTH TWICE A DAY FOR 30 DAYS 08/12 completed Not Available Not Available Not Available magnesium oxide 400 mg (241.3 mg magnesium) tablet TAKE 1 TABLET BY MOUTH TWICE A DAY FOR 7 DAYS 08/12 completed Not Available Not Available Not Available lorazepam 0.5 mg tablet TAKE 1 TABLET BY MOUTH TWICE A DAY NEEDED FOR ANXIETY active Not Available Not Available No t Available nicotine (polacrilex ) 4 mg gum 1 EACH CHEW EVERY 2 HOURS, NEEDED FOR SMOKING CESSATION active Not Available Not Available No t Available cephalexin 500 mg capsule TAKE 1 CAPSULE BY MOUTH FOUR TIMES A DAY. PLEASE SEE HAND SURGERY BEFORE YOU COMPLETE THIS SINCE THEY MAY EXTEND THERAPY IF NEEDED. 08/12 completed Not Available Not Available Not Available nicotine 21 mg/24 hr daily transdermal patch PLEASE SEE ATTACHED FOR DETAILED DIRECTION S 08/12 completed Not Available Not Available Not Available sertraline 50 mg tablet TAKE HALF TABLET BY MOUTH DAILY X 1 WEEK, THEN TAKE FULL TABLET DAILY active Not Available Not Available No t Available naproxen 500 mg tablet TAKE 1 TABLET BY MOUTH TWICE A DAY FOR 30 DAYS 08/12 completed Not Available Not Available Not Available cyclobenzap rine 5 mg tablet TAKE 1 TABLET BY MOUTH THREE TIMES A DAY NEEDED FOR SEVERE PAIN FOR 5 DAYS 08/12 completed Not Available Not Available Not Available aspirin active Not Available Not Avail able Not Available varenicline tartrate 0.5 mg (11)-1 mg (42) tablets in a dose pack TAKE 1 TABLET BY MOUTH TWICE A DAY 08/12 completed Not Available Not Available Not Available fluticasone propionate 230 mcg-salmete rol 21 mcg/actuati on HFA inhaler INHALE 2 PUFFS TWICE A DAY active Not Available Not Available No t Available Advair HFA Advair HFA 230-21MCG /ACT Aerosol 09/25 completed Statu s: 'Disc ontin ued'; Not Available Not Available Not Available Symbicort 80 mcg-4.5 mcg/actuati on HFA aerosol inhaler INHALE 2 PUFFS EVERY 12 HOURS active Not Available Not Available No t Available oxycodone HCl-oxycodo ne-ASA as directed 1 Q 4-[address] WHILE ON THIS MEDICATIO N 06/06 completed Statu s: 'Disc ontin ued'; Not Available Not Available Not Available potassium chloride ER 20 mEq tablet,exte nded release TAKE 1 TABLET BY MOUTH TWICE A DAY FOR 7 DAYS 08/12 completed Not Available Not Available Not Available Vitals Date Recorded Body height Body mass index (BMI) Body weight Provider Name and Address Organization Details Last Updated DateTime 02/10/2025 175.26 cm 26.3 kg/m2 74693.44 g Eileen Casas [facility] 02/10/2025 13:43:23 Social History Question Answer Notes LastModified by ActiveEon Details LastModified Time Tobacco Smoking Status Current Every Day Smoker RADHA Harden'RENNYJEREMY qiu [facility] 08/12/2024 10:17:49 Have You Ever Been Counseled For Unhealthy Alcohol Use? No Information not available 08/12/2024 What Is Your Relationship Status? Information not available 08/12/2024 How Much Tobacco Do You Smoke? 0.5 PPD Information not available 08/12/2024 Sex: Unknown Functional Status Question Answer Note LastModified by ActiveEon Details LastModified Time How many times per week do you consume alcohol? Less than 1 time per week Information not available 08/12/2024 Do you use any illicit or recreational drugs? No Information not available 08/12/2024 Do you or have you ever used any other forms of tobacco or nicotine? No Information not available 08/12/2024 What is your level of alcohol consumption? Occasional Information not available 08/12/2024 Mental Status None recorded. Family History Nothing Reported. Medical History Condition Response Coronary Artery Disease N Anxiety/Depression N Emphysema N COPD N Pacemaker N Vascular Disease N Heart Trouble Y Gastrointestinal Disease Y Autoimmune disease N Inflammatory Joint disease N Orthotics N Arthritis Y Blood Clot N Acid Reflux (GERD) N Cancer N Stroke N Circulation Problems N Rheumatoid Arthritis N Arrhythmia N Headaches N Fibromyalgia N Allergies/Hayfever N Breathing or lung disorders Y Nerve Disorders N Thyroid Problems N Kidney/Bladder Problems N Anemia N Heart Attack ([place]) N Cholesterol N Diabetes N Bleeding Disorder N Seizures/Epilepsy N AIDS/HIV N Congestive Heart Failure (CHF) N Asthma N Peripheral Vascular Disease N Sleep Apnea Y Hepatitis N Heart Disease N Pulmonary Embolism N Hypertension N Osteoporosis N Past Encounters Encounter ID Performer Location Encounter Start Date Encounter Closed Date Diagnosis/Indication Diagnosis SNOMED-CT Code Diagnosis ICD10 Code Diagnosis IMO Codes Diagnosis Note [id number] SUKUMAR [facility] [place] [address] [place] [address] 02/10/2025 13:40:13 02/18/2025 08:35:25 Pain of left hand [id number] 77620 M79.642 400018 Health Concerns Section Related Observation LastModified by Organization Detai ls LastModified Time None Recorded Concern Status LastModified by Organization Details LastModified Time None Recorded Payers Encounter Date Sequence Insurance Name Policy Number Policy San Covered Member ID San Member ID Guarantor Name 02/10/2025 1 [employer] [facility] [employer] [place] [place] [id number] Parul Caraballo [id number] Parul Caraballo Notes Date Note Type Note Provider Name and Address Organization Details Recorded Time 02/10/2025 text/html I am seeing this patient under the supervision of Dr. Bose who was available but who did not see the patient.Clinical update: Patient is here today for recheck. It has now been 3 months since his injection in the left first CMC joint. Reports he feels that this injection worked better than the last injection. Reports minimal return in his symptoms, states he is doing pretty well at this point and does not have much pain and is not sure if he needs another injection today. Physical exam, imaging review, impression, and plan for today's visit updated below.HPI: Patient is a 64-year-old male presenting to the office today for evaluation of the left hand and wrist pain. Reports this has been ongoing for a while, as throughout the past couple of years he sometimes would get sudden onset swelling and pain in the wrist for which he went to the ER multiple times and workups were always normal. Denies a history of gout. He has a history of left hand and wrist OA which he has been seen for here in the past. He had an ENM done in our office back in 2022 which was negative for carpal tunnel syndrome. He has not received any cortisone injections in our office here, however states he believes he saw a casing crew pusher to give him a cortisone injection a long time ago for his arthritis. Reports he also had an MRI done a while back which revealed possible ligament tear. Reports 2 weeks ago he slipped on ice and fell. He was seen at an outside facility where x-rays were obtained and revealed no acute fractures or dislocations. He is here today for orthopedic consultation to ensure he has not done any further damage.Past family, medical, social history and review of systems has been reviewed, updated and is located in the patient's chart.Examination: The patient is well appearing, alert and oriented x3 and in no acute distress. Inspection of the left hand and wrist reveals no edema, atrophy, erythema, ecchymoses or deformity. Skin is intact, no open wounds. Full movement of the forearm, wrist and digits. Intact median and ulnar innervated intrinsics. Intact extrinsic wrist and digit flexors and extensors. Intact sensation of median, ulnar and radial nerve distributions. Good capillary refill. Patient is tender about the first CMC joint, STT joint, and the TFCC the region. Otherwise nontender about the wrist, hand, and digits. Peripheral, vascular, lymphatic examination, skin, neurological, coordination, reflexes, sensation are within normal limits.Previous films: 4 view x-rays of the left wrist including a scaphoid view reveal no acute fractures or dislocations. 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 We discussed potential treatment options at this time. Patient would like to hold off on a cortisone injection today as he is not having too much pain. Follow-up in a month was arranged in case patient would like an injection at that time, which he can call and move sooner or further out if he would like depending on his symptom return. Patient understands and agrees with this plan. All questions were answered.Speech recognition health counselor software was used to create portions of this document. An attempt at proofreading has been made to minimize errors. Please call for corrections. Jessica Patel PA-C [address] [place] [address] [address], [place], [address], [facility] 02/10/2025 14:06:15
--- OUTSIDE RECORDS SUMMARY | 2025-05-13 01:02 | XMS_ITS | Data Portability ---
Author Organization [facility] Miguel Montemayor [facility], [facility] Address [address] [place] [address] Care Team Providers Care Bessemer Converter Operator Name Role Phone ANAIS BUCHANAN Primary Care Provider [phone] Assessment No assessment recorded. Plan of Treatment Reminders Order Date Submit Date Provider Last Modified By Organization Details Last Modified Time Details Appointments None recorded. Lab None recorded. Referral None recorded. Procedures None recorded. Surgeries None recorded. Imaging XR, wrist, 3 or more view - [facility] left wrist pain room 113 including scaphoid view please [email or web address] [place] [address] Office, [address] [facility], [facility] [address], [place], [address], 5 12:19:29 Medication Orders meloxicam 15 mg tablet 2024 025 [email or web address] [facility]/Pharmacy #[id number], [address] [place], [address], 5 12:19:29 Patient TargetsNo targets recorded. Patient InstructionsNo instructions recorded. Reason for Referral None Reported. Results Created Date Observation Date Name Description Value Unit Range Abnormal Flag Note LastModifiedBy Organization Detail LastModifiedTime 08/12/1908/12/2024 XR, wrist , 3 or more view http:/ [email or web address] ?Encry pted=s hAaTro YD8dLq bEUv6g %2BXZw aYqtaq 0bqfl% 2Fg9IQ a4ajBk vP9nXo QUaueC m3YtLR FvZlgJ JJ8mAn HZtai3 4u5879 AC0Kqb XyEVaq uKiQtr MwF INTERFACE [facility] Office [address] [facility] [address], [place], [address], 08/12/2024 10:27:38 08/12/19 25 08/12/2024 XR, wrist , 3 or more view http:/ [email or web address] ?Encry pted=s hAaTro YD8dLq bEUv6g %2BXZw aYqtaq 0bqfl% 2Fg9IQ a4ajBk vP9nXo QUaueC m3YtLR FvZlgJ JJ8mAn HZtai3 8w3151 AC0Kqb XyEVaq uKiQtr MwF INTERFACE [facility] [address] [facility] [address], [place], [address], 08/12/2024 10:27:40 Result Notes Documentation Provider Name and Address Organization Details Recorded Time Xr, Wrist, 3 Or More View : [email or web address] Encrypted=doUdQxsFT1iPiiJ Uv6g%6HCAebArnih5mzul%2Fg 3HMj9whRpfI8sLhVXygnLy1Ny BZUeUmkECM7uGoWYzpr43p168 7TP3BmgFlWYydrSkFwwFgB Not Available [facility] 08/12/2024 10:27: 39 Xr, Wrist, 3 Or More View : [email or web address] Encrypted=jnItNmuNL2xQelG Uv6g%2ZAUoxErgas8hzov%2Fg 2IIs2hgMxnF2bQlOOgxeYb5Vk XRWcLwtBPE8qSyJFfiq90z033 8YI9RjvBrCTiohEhHhgQyF Not Available [facility] 08/12/2024 10:27: 41 Problems Name Problem SNOMED Code Status Onset Date Resolution Date Notes Provider Name and Address Organization Details Recorded Time Pain of left wrist 715338261114414 Active 2024 KAYLIA L'HEUREUX [facility], [facility] 5 10:21:16 Problem Notes None recorded. Procedures Surgical History Date Name Laterality Status Provider Name and Address Organization Details Recorded Time 5 Small Joint Kenalog Injection, L/R completed Jessica Patel PA-C [address], [place], [address], [facility] 03/19/2025 14:27:44 5 Small Joint Kenalog Injection, L/R completed Jessica Patel PA-C [address], [place], [address], [facility] 11/11/2024 14:19:03 Imaging Results None recorded. Procedure Notes None recorded. Medical Equipment None Reported. Allergies Allergen ID Allergen Name Allergen Category Reaction Reaction Severity Criticality Documentation Date Start Date Code Code System Note Provider Name and Address Organization Details Recorded Time 912983 honey bee venom medicatio n Not available Not available Not available 08/12/2024 33095 7 RxNorm KAYLIA L'HEUREUX [facility], [facility] 5 10:15:07 20212 Shellfish (substanc e) food,medi cation Not available Not available Not available 08/26/20232005 94198 9006 SNOMED Not Available [facility] 4 13:10:59 Medications Name Sig Start Date [...] and Address Organization Details Last Updated DateTime 08/12/2024 175.26 cm 26.3 kg/m2 84338.44 g RADHA MATIAS [facility] 08/12/2024 10:14:48 Date Recorded Body height Body mass index (BMI) Body weight Provider Name and Address Organization Details Last Updated DateTime 09/11/2024 175.26 cm 26.3 kg/m2 21649.44 g laura jeffers [facility] 09/11/2024 13:32:59 Date Recorded Body height Body mass index (BMI) Body weight Provider Name and Address Organization Details Last Updated DateTime 11/11/2024 175.26 cm 26.3 kg/m2 49749.44 g Eileen Casas [facility] 11/11/2024 13:49:58 Date Recorded Body height Body mass index (BMI) Body weight Provider Name and Address Organization Details Last Updated DateTime 02/10/2025 175.26 cm 26.3 kg/m2 13419.44 g Eileen Casas [facility] 02/10/2025 13:43:23 Date Recorded Body height Body mass index (BMI) Body weight Provider Name and Address Organization Details Last Updated DateTime 03/19/2025 175.26 cm 26.6 kg/m2 65226.63 g CAMIFERNANDA DARCY [facility] 03/19/2025 13:31:14 Social History Question Answer Notes LastModified by [employer] Details LastModified Time Tobacco Smoking Status Current Every Day Smoker RADHA qiu [facility] 08/12/2024 10:17:49 Have You Ever Been Counseled For Unhealthy Alcohol Use? No Information not available 08/12/2024 What Is Your Relationship Status? Information not available 08/12/2024 How Much Tobacco Do You Smoke? 0.5 PPD Information not available 08/12/2024 Sex: Unknown Functional Status Question Answer Note LastModified by [employer] Details LastModified Time How many times per [...] History Nothing Reported. Medical History Condition Response Allergies/Hayfever N Coronary Artery Disease N Anxiety/Depression N Breathing or lung disorders Y Emphysema N Nerve Disorders N Thyroid Problems N COPD N Pacemaker N Anemia N Kidney/Bladder Problems N Vascular Disease N Heart Trouble Y Heart Attack ([place]) N Gastrointestinal Disease Y Cholesterol N Diabetes N Autoimmune disease N Inflammatory Joint disease N Bleeding Disorder N Orthotics N Arthritis Y Seizures/Epilepsy N Blood Clot N AIDS/HIV N Congestive Heart Failure (CHF) N Acid Reflux (GERD) N Cancer N Stroke N Asthma N Circulation Problems N Peripheral Vascular Disease N Sleep Apnea Y Hepatitis N Heart Disease N Rheumatoid Arthritis N Arrhythmia N Pulmonary Embolism N Headaches N Fibromyalgia N Hypertension N Osteoporosis N Past Encounters Encounter ID Performer Location Encounter Start Date Encounter Closed Date Diagnosis/Indication Diagnosis SNOMED-CT Code Diagnosis ICD10 Code Diagnosis IMO Codes Diagnosis Note [id number] Jessica Patel PA-C [facility] [address] [place] [address] 08/12/2024 09:55:52 08/20/2024 14:29:51 Pain of left wrist 9541405176 51047 M25.532 995658 [id number] Jessica Patel PA-C [facility] [place] [address] [place] [address] 09/11/2024 13:26:14 10/01/2024 15:05:21 Osteoarthritis of joint of left hand 9738204978 85483 M19.306 5115626 [id number] Jessica Patel PA-C [facility] [place] [address] [place] [address] 11/11/2024 13:40:21 11/19/2024 08:10:05 Arthritis of first carpometacarpal joint of left hand 1346176687 618084 M18.12 96508414 [id number] Jessica Patel PA-C [facility] [place] [address] [place] [address] 02/10/2025 13:40:13 02/18/2025 08:35:25 Pain of left hand 9920759919 88323 M79.642 [id number] Jessica Patel PA-C [facility] [place] [address] [place] [address] 03/19/2025 13:22:32 03/29/2025 15:22:58 Arthritis of first carpometacarpal joint of left hand 0505689553 855969 M18.12 [id number] Health Concerns Section Related Observation LastModified by Organization Detai ls LastModified Time None Recorded Concern Status LastModified by Organization Details LastModified Time None Recorded Advance Directives Directive None Recorded Payers Insurance Date Sequence Insurance Name Policy Number Policy San Covered Member ID San Member ID Guarantor Name 03/29/2025 1 [facility] ([facility] [id number] 1 Parul Caraballo [id number] Parul Caraballo Notes Date Note Type Note Provider Name and Address Organization Details Recorded Time 08/12/2024 text/html I am seeing this patient under the supervision of Dr. Norris who was available but who did not see the patient. HPI: Patient is a 64-year-old male presenting to [...] however states he believes he saw a insole and outsole splitter to give him a cortisone injection a [...] ensure he has not done any further damage. Past family, medical, social history and review of systems has been reviewed, updated and is located in the patient's chart. Examination: The patient is well appearing, alert and [...] neurological, coordination, reflexes, sensation are within normal limits. X-rays ordered, obtained and reviewed independently today at [facility]: 4 view x-rays of the left wrist including a scaphoid view reveal no acute fractures or dislocations. 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 Impression: Left first CMC and STT OA, TFCC sprain (injury 2 weeks ago) Plan: I discussed my findings and the situation with the patient at length. We discussed potential treatment options at this time. He would like to try meloxicam, and a cortisone injection for the first CMC joint as he is most tender in this region on exam today, as well as wrist exercises for the sprain and he will utilize his wrist brace at home. He was provided with a prescription for meloxicam as well as a wrist exercise handout today. Patient was advised not to take any other NSAIDs with meloxicam including ibuprofen/Advil/Alev e/Motrin, and was advised to take it with food. We discussed the role of cortisone as well as its risks and benefits. Patient would like to proceed with an injection. Under sterile technique the patient's left thumb first CMC joint injected with 1cc Lidocaine and 1cc Kenalog. Patient tolerated the procedure well. Post procedure protocol was discussed with the patient. He will follow-up in 4 weeks for reevaluation, no x-rays needed at that time. Depending on where his pain is we can consider another cortisone injection in another location such as the STT joint or the TFCC, or possible MRI if indicated. Patient understands and agrees with this plan. All questions were answered. Speech recognition hydroelectric station operator chief software was used to create portions of this document. An attempt at proofreading has been made to minimize errors. Please call for corrections. Jessica Patel PA-C [address] [place] [address] Suite [facility], [place], [address], [facility] [place] [facility] 08/12/2024 12:11:15 09/11/2024 text/html I am seeing this patient under the supervision of Dr. Norris who was available but who did not see the patient. Clinical update: Patient is here today for recheck. Reports the cortisone injection helped a lot. Reports he no longer has pain. Physical exam, imaging review, impression, and plan [...] however states he believes he saw a insole and outsole splitter to give him a cortisone injection a [...] nerve distributions. Good capillary refill. Patient is nontender about the wrist, hand, and digits. Peripheral, vascular, lymphatic examination, skin, neurological, coordination, reflexes, sensation are within normal limits.Previous films: 4 view x-rays of the left wrist including a scaphoid view reveal no acute fractures or dislocations. 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 We discussed potential treatment options at this time. He is doing very well at this time. 2-month follow-up (3 months from last cortisone injection) was arranged in case his pain returns and he would like another cortisone injection. Patient understands and agrees with this plan. All questions were answered.Speech recognition hydroelectric station operator chief software was used to create portions of this document. An attempt at proofreading has been made to minimize errors. Please call for corrections. Jessica Patel PA-C [address] [place] [address] [address], [place], [address], [place] [facility] [place] [facility] 09/11/2024 14:25:29 11/11/2024 text/html I am seeing this patient under the supervision of Dr. Bose who was available but who did not see the patient. Clinical update: Patient is here today for recheck. It has now been 3 months since his injection in the left first CMC joint and he would like another injection today as his symptoms have returned. Physical exam, imaging review, impression, and plan [...] however states he believes he saw a insole and outsole splitter to give him a cortisone injection a [...] STT OA.Impression: Left first CMC and STT OA, TFCC sprain (injury 2 weeks ago)Plan: I discussed my findings and the situation with the patient at length. We discussed potential treatment options at this time. He would like to try a cortisone injection for the first CMC joint as he is most tender in this region on exam today. We discussed the role of cortisone as well as its risks and benefits. Patient would like to proceed with an injection. Under sterile technique the patient's left thumb first CMC joint injected with 1cc Lidocaine and 1cc Kenalog. Patient tolerated the procedure well. Post procedure protocol was discussed with the patient. 3-month follow-up was arranged per patient request for repeat injection if he would like. Patient understands and agrees with this plan. All questions were answered.Speech recognition hydroelectric station operator chief software was used to create portions of this document. An attempt at proofreading has been made to minimize errors. Please call for corrections. Jessica Patel PA-C [address] [place] [address] [address], [place], [address], [facility] [place] [facility] 11/11/2024 14:19:19 02/10/2025 text/html I am seeing this patient [...] however states he believes he saw a insole and outsole splitter to give him a cortisone injection a [...] this plan. All questions were answered.Speech recognition hydroelectric station operator chief software was used to create portions of this document. An attempt at proofreading has been made to minimize errors. Please call for corrections. Jessica Patel PA-C [address], [place], [address], [place] [facility] [place] [facility] 02/10/2025 14:06:15 03/19/2025 text/html I am seeing this patient under the supervision of Dr. Bose who was available but who did not see the patient.Clinical update: Patient is here today for recheck. He has been over 3 months since the left first CMC injection. States his pain is returning and he would like a repeat injection today. Physical exam, imaging review, impression, [...] however states he believes he saw a insole and outsole splitter to give him a cortisone injection a [...] options at this time. Patient would like another cortisone injection today for the left first CMC joint. We discussed the role of cortisone as well as its risks and benefits. Patient would like to proceed with an injection. Under sterile technique the patient's left first CMC joint was injected with 1cc Marcaine and 1cc Kenalog. Patient tolerated the procedure well. Post procedure protocol was discussed with the patient. Follow-up in 4 months was arranged in case patient would like an injection at that time, which he can call and move sooner or further out if he would like depending on his symptom return. Patient understands and agrees with this plan. All questions were answered.Speech recognition hydroelectric station operator chief software was used to create portions of this document. An attempt at proofreading has been made to minimize errors. Please call for corrections. Jessica Patel PA-C [address] [place], [place] [address] [address], [place], [address], [facility] [place] [facility] 03/19/2025 14:28:05
--- OUTSIDE RECORDS SUMMARY | 2025-05-13 01:02 | XMS_ITS | Continuity of Care Document ---
Author Organization [facility], [facility] [place] [address] Address [facility] [place] [address] Care Team Providers Care Wool Fleece Grader Name Role Phone ANAIS BUCHANAN Primary Care Provider [phone] Assessment No assessment recorded. Plan of Treatment [...] Details Recorded Time Pain of left wrist 174665016663655 Active 2024 RADHA qiu [facility] 10:21:16 Problem Notes None recorded. Procedures Surgical History Date Name Laterality Status Provider Name and Address Organization Details Recorded Time 5 Small Joint Kenalog Injection, L/R completed Jessica Patel PA-C [address], [place], [address], [facility] 03/19/2025 14:27:44 5 Small Joint Kenalog Injection, L/R completed Jessica Patel PA-C [address], [place], [address], [facility] 11/11/2024 14:19:03 Imaging Results None recorded. Procedure Notes None recorded. Medical Equipment None Reported. Allergies Allergen ID Allergen Name Allergen Category Reaction Reaction Severity Criticality Documentation Date Start Date Code Code System Note Provider Name and Address Organization Details Recorded Time 755682 honey bee venom medicatio n Not available Not available Not available 08/12/2024 51567 7 RxNorm RADHA qiu [place] - [place] [facility] 5 10:15:07 99512 Shellfish (substanc e) food,medi cation Not available Not available Not available 08/26/20232005 04770 9006 SNOMED Not Available [facility] 4 13:10:59 [...] Updated DateTime 03/19/2025 175.26 cm 26.6 kg/m2 48124.63 g SINGHDAISY ROSENANDEZ [facility] 03/19/2025 13:31:14 Social History Question Answer Notes LastModified by [employer] Details LastModified Time Tobacco Smoking Status Current Every Day Smoker MURALIJOSE DereckADELITAJEREMY qiu [facility] 08/12/2024 10:17:49 Have You Ever Been Counseled For Unhealthy Alcohol Use? No Information not available 08/12/2024 What Is Your Relationship Status? Information not available 08/12/2024 How Much Tobacco Do You Smoke? 0.5 PPD Information not available 08/12/2024 Sex: Unknown Functional Status Question Answer Note LastModified by [employer] Details LastModified Time How many times per [...] Kidney/Bladder Problems N Anemia N Heart Attack ([place]) N Cholesterol N Diabetes N Bleeding Disorder N Seizures/Epilepsy N AIDS/HIV N Congestive Heart Failure (CHF) N Asthma N Peripheral Vascular Disease N Sleep Apnea Y Hepatitis N Heart Disease N Pulmonary Embolism N Hypertension N Osteoporosis N Past Encounters Encounter ID Performer Location Encounter Start Date Encounter Closed Date Diagnosis/Indication Diagnosis SNOMED-CT Code Diagnosis ICD10 Code Diagnosis IMO Codes Diagnosis Note [id number] SU[facility] [place] [address] [place] [address] 03/19/2025 13:22:32 03/29/2025 15:22:58 Arthritis of first carpometacarpal joint of left hand [id number] 202837 M18.12 [id number] Health Concerns Section Related Observation LastModified by Organization Detai ls LastModified Time None Recorded Concern Status LastModified by Organization Details LastModified Time None Recorded Payers Encounter Date Sequence Insurance Name Policy Number Policy San Covered Member ID San Member ID Guarantor Name 03/19/2025 1 [employer] [place] ([facility] [id number] 1 Parul Caraballo [id number] Parul Caraballo Notes Date Note Type Note Provider Name and Address Organization Details Recorded Time 03/19/2025 text/html I am seeing this patient [...] however states he believes he saw a equipment validation engineer to give him a cortisone injection a [...] this plan. All questions were answered.Speech recognition outpatient program coordinator software was used to create portions of this document. An attempt at proofreading has been made to minimize errors. Please call for corrections. Jessica Patel PA-C [address] [facility] [address] [facility], [place], [address], [facility] [place] [facility] 03/19/2025 14:28:05
== END 2025-05-12 13:51 | disposition home or self-care (01) ==
LOC: HO.HPSW 13:08
PROVIDERS: PCP Nurse Practitioner Family; Visit Provider Nurse Practitioner Family
DX: J45.909 Unspecified asthma, uncomplicated (principal); J44.9 Chronic obstructive pulmonary disease, unspecified; F17.210 Nicotine dependence, cigarettes, uncomplicated; Z91.09 Other allergy status, other than to drugs and biological substances; G47.8 Other sleep disorders; R40.0 Somnolence
CPT/HCPCS: 99214